=== PATIENT | female | born 1955 | race Caucasian/White ===

== ENCOUNTER → 2018-07-25 | Outpatient (CLI) | payer OTHER ==
[~2018-07-25] MED LIST: ALDACTONE 100M100 MG PO; ASPIRIN E.C. 8181 MG PO; ATENOLOL100 MG PO; CALCIUM 500500 M2 PO; CRANBERRY1000 MG PO; GLUCOSAMINE500 M2 PO; LIPITOR40 MG PO; MAREPA1200 MG PO; MULTIPLE VITAMI1 CAP PO; QUINAPRIL10 M1 PO; SYNTHROID0.125 MG PO
== END ==
LOC: MC.RAD 13:34
DX: Z12.31 Encounter for screening mammogram for malignant neoplasm of breast (principal)

== ENCOUNTER → 2020-11-02 | Outpatient (CLI) | payer OTHER | LOC: MC.RAD | DX: Z12.31 Encounter for screening mammogram for malignant neoplasm of breast (principal) ==

== ENCOUNTER 2024-02-11 10:42 | Emergency (ER) | payer MEDICARE, OTHER ==
[~2024-02-11] VITALS: Ht 160 cm; Wt 106.8 kg
[~2024-02-11 10:42] MED LIST changes: +ROXICODONE 55 MG/TAB PO; +TYLENOL 500MG500 MG PO
[2024-02-11 11:01] VITALS: TEMP 98.1
[2024-02-11 13:44] VITALS: BP 137/97; PULSE 68
== END 2024-02-11 13:44 | disposition home or self-care (01) ==
LOC: COL.ER 10:42
DX: S16.1XXA Strain of muscle, fascia and tendon at neck level, initial encounter (principal); S00.03XA Contusion of scalp, initial encounter; S80.02XA Contusion of left knee, initial encounter; Z87.891 Personal history of nicotine dependence; W01.198A Fall on same level from slipping, tripping and stumbling with subsequent striking against other object, initial encounter